=== PATIENT | female | born 1975 | race Caucasian/White ===

== ENCOUNTER 2016-06-03 11:31 | Emergency (ER) | payer OTHER ==
[2016-06-03 11:14] LABS: URINE SOURCE CLEAN CATCH
[2016-06-03 11:17] LABS: URINE APPEARANCE SL CLOUDY; URINE BILIRUBIN NEG (NEG); URINE BLOOD 2+ (NEG); URINE COLOR YELLOW; URINE GLUCOSE NEG (NORM); URINE KETONE NEG (NEG); URINE LEUKOCYTE ESTERASE 3+ (NEG); URINE NITRATE NEG (NEG); URINE PH 6.5 (5-8); URINE PROTEIN NEG (NEG); URINE SPECIFIC GRAVITY <=1.005 (1.003-1.035); URINE UROBILINOGEN 0.2 MG/DL (NORM)
[2016-06-03 11:19] LABS: MICRO INDICATED? YES
[2016-06-03 11:25] LABS: CULTURE INDICATED? YES; URINE BACTERIA 1+ (NEG); URINE SQUAMOUS EPITHELIAL CELL OCCAS /[HPF]; URINE WBC 100-200 /[HPF] (0-5)
[~2016-06-03 11:31] MED LIST: ALBUTEROL17 GM INH; AMOXICILLIN PO; ANAPROX; BACTRIM DS TABL1 TAB PO; CIPRO PO; CORICIDIN HBP F1 TAB PO; DICLOFENAC PO; FLEXERIL PO; FLOMAX0.4 M1 PO; GLUCOTROL XL PO; HYDROCODON-ACE1 EAC3 PO; LISINOPRIL PO; LOPID600 MG PO; MACROBID100 MG; METFORMIN PO; MOBIC PO; NAPROSYN500 MG PO; PEN-VEE K PO; PREDNISOLONE5 MG PO; PYRIDIUM PO; ROBAXIN; ROBITUSSIN A-C-S1 ML PO; TYLENOL #3 PO; ULTRAM PO; VICODIN 5/1 TAB 5/50 PO; VICODIN 5/500 T1 TAB PO; [UNRECOGNIZED DRUG - OTHER] PO
== END 2016-06-03 11:41 | disposition home or self-care (01) ==
LOC: SED 11:31
PROVIDERS: Emergency Medicine
DX: N30.00 Acute cystitis without hematuria (principal); F17.200 Nicotine dependence, unspecified, uncomplicated; Z86.19 Personal history of other infectious and parasitic diseases; Z98.51 Tubal ligation status
CPT/HCPCS: 81003; 84703; 87086; 87088; 87186; 99284